=== PATIENT | male | born 1965 | race Caucasian/White ===

== ENCOUNTER 2019-06-25 00:30 | Inpatient (IN) | payer BC ==
[2019-06-25 00:51] LABS: Hemoglobin 6.2 g/dL (14.0-18.0); Mean Platelet Volume 7.6 fL (7.4-10.4); Platelet Count 179 thou/uL (130-400); Red Blood Cell (RBC) Count 1.67 mill/uL (4.70-6.10); White Blood Cell (WBC) Count 9.4 thou/uL (4.8-10.8)
[2019-06-25] MEDS ORDERED: Tranexamic Acid 1,000 MG/10 ML VIAL ONE (00:52)
[2019-06-25] MEDS ORDERED: Pantoprazole 40 MG VIAL ONE ×2 (00:52→09:40)
[2019-06-25 01:04] LABS: INR-International Normal Ratio 1.1; PTT 24.9 SEC (22.9-36.1); Prothrombin Time 14.1 SEC (12.0-14.7)
[2019-06-25 01:12] LABS: #Eosinphils 0.1 thou/uL (0.0-0.7); #Lymphocytes 2.4 thou/uL (1.20-3.40); #Monocytes 0.5 thou/uL (0.11-0.59); #Neutrophils 6.4 thou/uL (1.40-6.50); %Basophils 0.4 % (0.0-1.0); %Eosinophils 1.2 % (0.0-10.0); %Lymphocytes 25.1 % (21.0-51.0); %Monocytes 5.5 % (0.0-10.0); %Neutrophils 67.9 % (42.0-75.0); ALT (SGPT) 12 U/L (8-55); AST (SGOT) 14 U/L (5-34); Albumin 2.8 g/dL (3.5-5.0); Alkaline Phosphatase 38 U/L (40-110); Anion Gap 19 mmol/L (10-20); BUN (Urea Nitrogen) 41 mg/dL (8.4-25.7); Bilirubin, Total 0.3 mg/dL (0.2-1.2); Calc. Creatinine Clearance 0 mL/min (70-130); Calcium 7.8 mg/dL (7.8-10.44); Carbon Dioxide 19 mmol/L (22-29); Chloride 100 mmol/L (98-107); Estimated GFR-MDRD 45; Globulin 1.6 g/dL (2.4-3.5); Glucose 202 mg/dL (70-105); MDiff Complete? YES; Macrocytosis SLIGHT = 6-15 cells (100X) (0-5/hpf); Mean Corpuscular HGB CONC 34.7 g/dL (32.0-36.0); Mean Corpuscular Hemoglobin 37.3 pg (27.0-31.0); Protein, Total 4.4 g/dL (6.0-8.3); RBC Distribution Width 11.8 % (11.5-14.5); Sodium 134 mmol/L (136-145)
[2019-06-25] MEDS ORDERED: Tranexamic Acid 1,000 MG in Sodium Chloride 0.9% 250 ML 250 ML IVPB SCH (01:15)
[2019-06-25] MEDS ORDERED: CCU Electrolyte Replacement 1 EACH IVPB SCH (03:09)
[2019-06-25] MEDS ORDERED: Sodium Chloride 0.9% (PF) 10 ML VIAL FS PRN (03:11)
[2019-06-25] MEDS ORDERED: PHOS-NAK 1 PKT PACK PO PRN ×2 (03:12)
[2019-06-25] MEDS ORDERED: Potassium Chloride 40 MEQ in Sodium Chloride 0.9% 250 ML 250 ML IVPB PRN (03:12)
[2019-06-25] MEDS ORDERED: CCU ELECTROLYTE REPLACEMENT PROTOCOL FS PRN (03:12)
[2019-06-25] MEDS ORDERED: Magnesium Oxide 400 MG TAB PO PRN ×2 (03:12)
[2019-06-25] MEDS ORDERED: Magnesium 2 GM/50 ML 2 GM in Premix Bag 1 BAG IVPB PRN (03:12)
[2019-06-25] MEDS ORDERED: Potassium Phosphate 12 MMOL in Sodium Chloride 0.9% 250 ML 250 ML IV PRN (03:12)
[2019-06-25] MEDS ORDERED: Potassium Phosphate 9 MMOL in Sodium Chloride 0.9% 100 ML IVPB PRN (03:12)
[2019-06-25] MEDS ORDERED: Potassium Chloride 40 MEQ in Premix Bag 1 BAG IVPB PRN (03:12)
[2019-06-25] MEDS ORDERED: Potassium Chloride 20 MEQ TAB PO PRN (03:12)
[2019-06-25] MEDS ORDERED: Potassium Phosphate 15 MMOL in Sodium Chloride 0.9% 250 ML 250 ML IV PRN (03:12)
[2019-06-25] MEDS ORDERED: Sodium Chloride 0.9% 1,000 ML IV SCH (03:15)
[2019-06-25 04:35] LABS: Troponin I 0.012 ng/mL (< 0.028)
--- NOTE | 2019-06-25 04:49 | HP ---
CHIEF COMPLAINT: Dark blood per rectum. HISTORY OF PRESENT ILLNESS: Patient is a 53-year-old male with a past medical history of hypertension, who comes into the hospital with worsening dark stools going on since Sunday. The patient stated that Sunday night, he had a spicy crawfish and a femi crab and Sunday afternoon, he started feeling unwell. He started having nausea, vomiting, and dark stool, diarrhea. He stated that Sunday, he did not eat anything. He stated that he felt a little bit better, but still significantly had the diarrhea, nausea, and vomiting. Sunday, the patient was able to eat something and did not have the nausea, vomiting, but his diarrhea continued to the point that he got so dizzy and just really weak, so he called EMS last night. The patient denies taking any ibuprofen on a regular basis. He states that he takes it at times. He does drink significant amount of alcohol, 3 to 4 bourbons daily. This has never happened to this patient before. He denies any fevers or chills. In the EMS, he was noted to have a very low blood pressure, was given some IV hydration and was brought in here for further evaluation. PAST MEDICAL HISTORY: Hypertension, he has not been taking his losartan for the past couple days. FAMILY HISTORY: Mother had diabetes. Father had heart disease. PAST SURGICAL HISTORY: He has had a right ankle surgery. SOCIAL HISTORY: He smokes about half a pack a day. Alcohol, 3 to 4 bourbon daily. Denies any recreational drug use. He is a full code. REVIEW OF SYSTEMS: All negative except for the ones mentioned above in the HPI. PHYSICAL EXAMINATION: VITAL SIGNS: Temperature 98.8, respirations 18, blood pressure 115/70, heart rate 106, 100% on room air. GENERAL: He is awake, alert, and oriented x3. Does not appear in distress. CARDIOVASCULAR: S1, S2 present. Sinus tach. LUNGS: Clear to auscultation. No rhonchi or wheezes noted. ABDOMEN: Soft and nontender. No pain upon epigastric area or lower quadrant area. No pain upon palpation. Bowel sounds are present x2. EXTREMITIES: No edema. Pedal pulses are present x2. NEUROVASCULAR: No focal deficits noted. SKIN: No cuts, lesions, or bruises noted. LABORATORY RESULTS: Sodium 134, potassium of 4.0, BUN of 41, creatinine 1.60, glucose of 202. Troponin is 0.017. Alkaline phosphatase is normal. AST, ALT are normal. WBCs of 9.4, hemoglobin 6.2, hematocrit is 17.9, platelets of 179. He did have a chest x-ray which was normal and did not show any acute abnormalities. ASSESSMENT AND PLAN: The patient is a very pleasant 53-year-old male, who presents to the hospital with dark blood per rectum. 1. Hematochezia. The patient states that he initially started with nausea vomiting, gotten worse, started having some significant dark stools, possible upper gastrointestinal bleed due to alcohol use versus diverticulosis, bleed unclear at this time. He has never had EGD or colonoscopy. We will keep him n.p.o., put him on a PPI. He has no abdominal pain. I will hold off on any imaging for now. We will start him on some IV hydration. He is going to get 2 units of blood. We will check an H and H. He has not had anymore dark stools since he has been here. Infectious etiology is also a possibility, however, unlikely. 2. Dehydration. We will start patient on gentle hydration. Continue to monitor. 3. Acute kidney injury, this is most likely prerenal. We will continue to monitor. 4. Deep venous thrombosis prophylaxis. We will put the patient on SCDs. 5. History of hypertension. We will hold off on blood pressure medications for now. Job ID: [id number]
[2019-06-25] MEDS ORDERED: Albumin 25% 25 GM/100 ML BOT IVPB SCH (06:51)
--- NOTE | 2019-06-25 07:41 | RAD ---
Portable frontal chest radiograph: 06/25/2019 COMPARISON: None HISTORY: Hypotension, GI bleeding FINDINGS: Lungs are clear. Heart and mediastinal contours appear within normal limits. IMPRESSION: No acute findings.
[2019-06-25] MEDS: Sodium Chloride 0.9% 1,000 ML IV SCH ×2 (08:10→20:31)
[2019-06-25 09:49] LABS: #Eosinphils 0.1 thou/uL (0.0-0.7); #Lymphocytes 1.6 thou/uL (1.20-3.40); #Monocytes 0.7 thou/uL (0.11-0.59); #Neutrophils 6.7 thou/uL (1.40-6.50); %Basophils 0.3 % (0.0-1.0); %Eosinophils 0.9 % (0.0-10.0); %Lymphocytes 17.9 % (21.0-51.0); %Monocytes 7.4 % (0.0-10.0); %Neutrophils 73.5 % (42.0-75.0); Hemoglobin 7.1 g/dL (14.0-18.0); Mean Corpuscular HGB CONC 35.3 g/dL (32.0-36.0); Mean Corpuscular Hemoglobin 35.4 pg (27.0-31.0); Mean Platelet Volume 8.2 fL (7.4-10.4); Platelet Count 145 thou/uL (130-400); Red Blood Cell (RBC) Count 2.01 mill/uL (4.70-6.10); White Blood Cell (WBC) Count 9.2 thou/uL (4.8-10.8)
[2019-06-25] MEDS: Pantoprazole 40 MG VIAL IVP SCH ×2 (09:54→20:31)
[2019-06-25] MEDS ORDERED: PROPOFOL 200 MG/20 ML VIAL ONE (09:56)
[2019-06-25 10:08] VITALS: BMI 22.8
[2019-06-25 10:17] LABS: Troponin I 0.018 ng/mL (< 0.028)
--- NOTE | 2019-06-25 16:13 | OP ---
DATE OF PROCEDURE: 06/25/2019 OPERATIVE PROCEDURE: Esophagogastroduodenoscopy with biopsy. PREOPERATIVE DIAGNOSIS: Gastrointestinal bleeding. POSTOPERATIVE DIAGNOSES: 1. Multiple erosions, distal esophagus. 2. Hiatus hernia. 3. Large deep ulceration, measuring approximately 3 x 2 cm, gastric antrum, nonbleeding. 4. Duodenitis with polypoid-appearing mucosa. In the descending duodenum, no lesions. 5. At the time of endoscopy, there was no active bleeding seen and there were no visible vessels seen. DESCRIPTION OF PROCEDURE: The patient was placed on his left lateral position and was given sedation by Anesthesia Department. A Pentax videogastroscope under direct vision passed down the oropharynx past the GE junction into the stomach and subsequently into the descending duodenum. The patient had multiple erosions in the distal esophagus. The intervening mucosa appeared actually normal. In the GE junction, no Marilee-Gibbs tear seen. Retroflexion failed to show any pathology in the fundus or cardia. He does have a hiatus hernia. The stomach was completely free of any blood or any old blood. Over the gastric antrum, the patient was found to have a very large and deep ulceration. The ulcer was quite deep and measured probably about 3 x 2 cm. The ulcer base appeared very smooth and does not show any visible vessel or any oozing of blood. The duodenal bulb showed duodenitis with mucosal edema and erythema. In the descending duodenum, no pathology. Biopsy obtained from the gastric antrum and gastric body. The stomach decompressed and scope was removed. RECOMMENDATION: 1. Discontinue n.p.o. 2. Clear liquid diet today. 3. IV PPI. 4. Serial hemoglobin and hematocrit and transfuse p.r.n. Job ID: [id number]
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
--- NOTE | 2019-06-25 17:54 | PDOC.HOSPP ---
- Subjective Encounter Date: 06/25/19 Encounter Time: 12:10 Subjective: seenin the ER holding, plan for EGD today.no hx of NSAIDs, hemorrhoids and no prior cscope. no bleed this am. - Objective Vital Signs & Weight: Vital Signs (12 hours) Temp Pulse Ox 06/25/19 16:58 98 06/25/19 16:44 99 06/25/19 16:05 98.2 F Weight Weight 159 lb 6.307 oz Result Diagrams: 06/25/19 09:36 06/25/19 00:37 Hospitalist ROS - Medication Medications: Active Medications Generic Name Dose Route Start Last Admin Trade Name Freq PRN Reason Stop Dose Admin Thiamine HCl 100 mg/ Sodium 51 mls @ 100 mls/hr 06/25/19 09:00 06/25/19 09:54 Chloride IVPB 51 mls Q24HR REA Administration Sodium Chloride 1,000 mls @ 150 mls/hr 06/25/19 06:51 06/25/19 08:10 Normal Saline 0.9% IV 1,000 mls .Q6H40M REA Administration Pantoprazole Sodium 40 mg 06/25/19 09:00 06/25/19 09:54 Protonix IVP 40 mg Q12HR REA Administration Sodium Chloride 10 ml 06/25/19 09:00 06/25/19 09:54 Flush - Normal Saline IVF 10 ml Q12HR REA Administration - Exam General Appearance: NAD, awake alert Eye: PERRL ENT: normocephalic atraumatic Neck: supple Heart: RRR, no murmur Respiratory: CTAB, normal chest expansion Gastrointestinal: soft, normal bowel sounds Hosp A/P - Plan Hematochezia ABLA anemia requiring transfusioin s/p EGD -severe esophagitis and gastritis -cw IV PPI - CLD adn advance as vicente'd JO -with dehydration -pt getting prbcs -am bmp HTN -cw home regimen.
[2019-06-25 18:23] LABS: Hemoglobin 8.1 g/dL (14.0-18.0)
[2019-06-26 03:08] VITALS: BP 113/76
[2019-06-26 03:49] LABS: #Eosinphils 0.1 thou/uL (0.0-0.7); #Lymphocytes 2.1 thou/uL (1.20-3.40); #Monocytes 0.5 thou/uL (0.11-0.59); #Neutrophils 4.4 thou/uL (1.40-6.50); %Basophils 0.6 % (0.0-1.0); %Eosinophils 1.6 % (0.0-10.0); %Lymphocytes 29.4 % (21.0-51.0); %Monocytes 7.3 % (0.0-10.0); %Neutrophils 61.1 % (42.0-75.0); Hemoglobin 7.5 g/dL (14.0-18.0); Mean Corpuscular HGB CONC 35.9 g/dL (32.0-36.0); Mean Corpuscular Hemoglobin 35.2 pg (27.0-31.0); Mean Corpuscular Volume 98.1 fL (78.0-98.0); Mean Platelet Volume 7.6 fL (7.4-10.4); Platelet Count 138 thou/uL (130-400); RBC Distribution Width 14.8 % (11.5-14.5); Red Blood Cell (RBC) Count 2.11 mill/uL (4.70-6.10); White Blood Cell (WBC) Count 7.2 thou/uL (4.8-10.8)
[2019-06-26 04:11] LABS: Anion Gap 9 mmol/L (10-20); BUN (Urea Nitrogen) 18 mg/dL (8.4-25.7); Calc. Creatinine Clearance 92 mL/min (70-130); Calcium 7.7 mg/dL (7.8-10.44); Carbon Dioxide 20 mmol/L (22-29); Chloride 112 mmol/L (98-107); Estimated GFR-MDRD 84; Glucose 90 mg/dL (70-105); Potassium 4.1 mmol/L (3.5-5.1); Sodium 137 mmol/L (136-145)
[2019-06-26] MEDS: Sodium Chloride 0.9% 1,000 ML IV SCH ×4 (04:11→17:12)
[2019-06-26] MEDS: Pantoprazole 40 MG VIAL IVP SCH (09:54)
[2019-06-26 16:39] VITALS: TEMP 98.5
--- NOTE | 2019-06-26 16:48 | PDOC.HOSPP ---
- Subjective Encounter Date: 06/26/19 Encounter Time: 09:30 Subjective: able to tolerate CLD, had BM- at bedside. - Objective Vital Signs & Weight: Vital Signs (12 hours) Temp Pulse Ox 06/26/19 16:39 98.5 F 06/26/19 11:29 98.1 F 06/26/19 07:40 98.2 F 06/26/19 07:25 98 Weight Weight 171 lb 1.012 oz Most Recent Monitor Data Heart Rate from ECG 93 NIBP 149/71 NIBP BP-Mean 97 Respiration from ECG 21 SpO2 97 I&O: 06/25/19 06/26/19 06/27/19 06:59 06:59 06:59 Intake Total 2239 Output Total 850 Balance 1389 Result Diagrams: 06/26/19 03:23 06/26/19 03:23 Hospitalist ROS - Medication Medications: Active Medications Generic Name Dose Route Start Last Admin Trade Name Freq PRN Reason Stop Dose Admin Thiamine HCl 100 mg/ Sodium 51 mls @ 100 mls/hr 06/25/19 09:00 06/26/19 09:54 Chloride IVPB 51 mls Q24HR ERA Administration Sodium Chloride 1,000 mls @ 150 mls/hr 06/25/19 06:51 06/26/19 09:54 Normal Saline 0.9% IV 1,000 mls .Q6H40M REA Administration Pantoprazole Sodium 40 mg 06/25/19 09:00 06/26/19 09:54 Protonix IVP 40 mg Q12HR REA Administration Sodium Chloride 10 ml 06/25/19 09:00 06/26/19 09:54 Flush - Normal Saline IVF 10 ml Q12HR REA Administration - Exam General Appearance: NAD Eye: PERRL ENT: dry oral mucosa Neck: supple Heart: RRR Respiratory: CTAB Gastrointestinal: soft, normal bowel sounds Hosp A/P - Plan Hematochezia ABLA anemia requiring transfusioin s/p EGD -severe esophagitis and gastritis -cw IV PPI - CLD adn advance as vicente'd JO -with dehydration -pt getting prbcs -am bmp HTN -cw home regimen. change IV to PO bid waiting for GI to clear him. stable for dc.
--- NOTE | 2019-06-26 17:48 | PRG ---
DATE OF SERVICE: 06/26/2019 SUBJECTIVE: This is a 53-year-old male with history of chronic alcohol abuse over the years, comes in with abdominal pain, nausea, vomiting, history of black tarry stool. He has never had an EGD yesterday. deep ulceration of the gastric antrum. Biopsy of the gastric antrum shows no Helicobacter. He has done well overnight. He is tolerating diet. No abdominal pain. No nausea, no vomiting. Blood count is stable around 7.5. He offers no complaints. OBJECTIVE: GENERAL: Appears comfortable. VITAL SIGNS: Afebrile. His pulse is 88, blood pressure is 149/71. CARDIOVASCULAR: Normal heart sounds. LUNGS: Clear to auscultation. ABDOMEN: Soft. No organomegaly. No tenderness. No masses. IMPRESSION: 1. Upper GI bleeding. 2. Gastric ulcer. RECOMMENDATIONS: 1. From GI standpoint, he can be discharged home on pantoprazole 40 once a day. 2. Iron supplement. 3. Will come back to see me in 2 weeks. Plan to repeat EGD in 3 months' time. Job ID: [id number]
--- NOTE | 2019-06-27 03:55 | DIS ---
DATE OF ADMISSION: 06/25/2019 DATE OF DISCHARGE: 06/26/2019 DISCHARGE DIAGNOSES: 1. Hematochezia. 2. Acute blood loss anemia, requiring transfusion. 3. Severe esophagitis and gastritis. 4. Acute kidney injury with dehydration. 5. Hypertension. 6. Status post GI consult with Dr. Crisostomo. 7. Status post EGD. HOSPITAL COURSE: Please see the history and physical and progress note for details. He was admitted with hematochezia blood transfusion and his hemoglobin was 7.5 today. GI cleared him for discharge. The patient is discharged with iron supplement, as well as Protonix twice a day. DISCHARGE INSTRUCTIONS: Activity as tolerated. Regular diet. Follow up with PCP in one week. Follow up with Gastroenterology, Dr. Crisostomo, as needed. Discharge time took less than 30 minutes. Job ID: [id number]
--- NOTE | 2019-06-28 14:15 | EKG ---
Test Reason : Blood Pressure : / mmHG Vent. Rate : 106 BPM Atrial Rate : 106 BPM P-R Int : 154 ms QRS Dur : 086 ms QT Int : 380 ms P-R-T Axes : 073 068 070 degrees QTc Int : 504 ms Sinus tachycardia Otherwise normal ECG Confirmed by DINORA AIKEN DO ([id number]), editor department ANN MARIE ENAMORADO ([id number]) on 06/28/2019 2:14:54 PM Referred By: Confirmed By:DINORA AIKEN DO
== END 2019-06-26 18:40 | disposition home or self-care (01) | DRG 378 ==
LOC: ERS 00:30 → ERHOLD 03:15 → IMCU/EMU 15:43
PROVIDERS: ADMIT Internal Medicine; ATTEND Internal Medicine
PROC: 0DB68ZX Excision of Stomach, Via Natural or Artificial Opening Endoscopic, Diagnostic (ICD-10-PCS; principal; 2019-06-25)
PROC: 30233N1 Transfusion of Nonautologous Red Blood Cells into Peripheral Vein, Percutaneous Approach (ICD-10-PCS; 2019-06-25)
DX: K25.4 Chronic or unspecified gastric ulcer with hemorrhage (principal); N17.9 Acute kidney failure, unspecified; D62 Acute posthemorrhagic anemia; I10 Essential (primary) hypertension; F17.210 Nicotine dependence, cigarettes, uncomplicated; F10.10 Alcohol abuse, uncomplicated; E86.0 Dehydration; K44.9 Diaphragmatic hernia without obstruction or gangrene; K29.80 Duodenitis without bleeding; K20.9 Esophagitis, unspecified; K29.70 Gastritis, unspecified, without bleeding
CPT/HCPCS: 36415; 36430; 71045; 80048; 80053; 84484; 85025; 85610; 85730; 86850; 86900; 86901; 88305; 88312; 93005; 96365; 96366; 96368; 96376; 99292; C9113; J2704; J3411; J7050; P9016; P9047

== ENCOUNTER 2020-08-31 19:48 | Observation (INO) | payer BC ==
[2020-08-31 20:19] LABS: #Basophils 0.1 thou/uL (0.0-0.2); #Eosinphils 0.1 thou/uL (0.0-0.7); #Lymphocytes 2.1 thou/uL (1.20-3.40); #Monocytes 0.8 thou/uL (0.11-0.59); #Neutrophils 9.3 thou/uL (1.40-6.50); %Basophils 0.5 % (0.0-1.0); %Eosinophils 0.6 % (0.0-10.0); %Lymphocytes 16.9 % (21.0-51.0); %Monocytes 6.7 % (0.0-10.0); %Neutrophils 75.3 % (42.0-75.0); Hemoglobin 13.3 g/dL (14.0-18.0); Mean Corpuscular HGB CONC 34.8 g/dL (32.0-36.0); Mean Corpuscular Hemoglobin 33.3 pg (27.0-31.0); Mean Corpuscular Volume 95.6 fL (78.0-98.0); Mean Platelet Volume 7.7 fL (7.4-10.4); Platelet Count 225 thou/uL (130-400); RBC Distribution Width 12.3 % (11.5-14.5); Red Blood Cell (RBC) Count 3.99 mill/uL (4.70-6.10); White Blood Cell (WBC) Count 12.3 thou/uL (4.8-10.8)
[2020-08-31] MEDS ORDERED: Nitroglycerin 2% Ointment 1 INCH/1 GM Packet ONE (20:24)
[2020-08-31] MEDS ORDERED: Aspirin Chewable 81 MG TAB ONE (20:24)
[2020-08-31 20:42] LABS: ALT (SGPT) 29 U/L (8-55); AST (SGOT) 40 U/L (5-34); Albumin 4.3 g/dL (3.5-5.0); Alkaline Phosphatase 71 U/L (40-110); Anion Gap 19 mmol/L (10-20); BUN (Urea Nitrogen) 22 mg/dL (8.4-25.7); Bilirubin, Total 0.7 mg/dL (0.2-1.2); Calc. Creatinine Clearance 0 mL/min (70-130); Calcium 6.7 mg/dL (7.8-10.44); Carbon Dioxide 23 mmol/L (22-29); Chloride 102 mmol/L (98-107); Globulin 3.2 g/dL (2.4-3.5); Glucose 114 mg/dL (70-105); Lipase 47 U/L (8-78); Potassium 3.2 mmol/L (3.5-5.1); Protein, Total 7.5 g/dL (6.0-8.3); Sodium 141 mmol/L (136-145)
[2020-08-31] MEDS ORDERED: Potassium Chloride 20 MEQ TAB ONE (21:03)
[2020-08-31] MEDS ORDERED: Ondansetron PF 4 MG/2 ML Vial IVP PRN (23:51)
[2020-08-31] MEDS ORDERED: Acetaminophen 325 MG TAB PO PRN (23:51)
[2020-08-31] MEDS ORDERED: hydrALAZINE 20 MG/ML VIAL SLOW IVP PRN (23:53)
[2020-08-31 23:54] LABS: Troponin I Less than 0.010 ng/mL (< 0.028)
[2020-08-31] MEDS ORDERED: Pantoprazole 40 MG VIAL IVP SCH (23:59)
[2020-09-01] MEDS: Sodium Chloride 0.9% 1,000 ML IV SCH ×3 (00:33→21:07)
[2020-09-01] MEDS ORDERED: Magnesium Sulfate 4 GM in Sodium Chloride 0.9% 250 ML 250 ML IVPB SCH (01:00)
[2020-09-01] MEDS ORDERED: Morphine 4 MG/ML VIAL SLOW IVP PRN (01:23)
[2020-09-01 01:25] VITALS: BMI 25.3
[2020-09-01 02:23] LABS: SARS-CoV-2 NAA Rapid Test Not Detected (NotDetected)
[2020-09-01 02:33] LABS: #Eosinphils 0.1 thou/uL (0.0-0.7); #Lymphocytes 1.6 thou/uL (1.20-3.40); #Monocytes 0.7 thou/uL (0.11-0.59); #Neutrophils 6.5 thou/uL (1.40-6.50); %Basophils 0.3 % (0.0-1.0); %Eosinophils 1.1 % (0.0-10.0); %Lymphocytes 18.2 % (21.0-51.0); %Monocytes 7.4 % (0.0-10.0); %Neutrophils 73.1 % (42.0-75.0); Hemoglobin 11.5 g/dL (14.0-18.0); Mean Corpuscular HGB CONC 34.2 g/dL (32.0-36.0); Mean Corpuscular Hemoglobin 33.1 pg (27.0-31.0); Mean Corpuscular Volume 96.6 fL (78.0-98.0); Mean Platelet Volume 7.8 fL (7.4-10.4); Platelet Count 198 thou/uL (130-400); RBC Distribution Width 12.3 % (11.5-14.5); Red Blood Cell (RBC) Count 3.48 mill/uL (4.70-6.10); White Blood Cell (WBC) Count 8.8 thou/uL (4.8-10.8)
[2020-09-01 02:58] LABS: Troponin I Less than 0.010 ng/mL (< 0.028)
[2020-09-01 03:25] LABS: Anion Gap 16 mmol/L (10-20); BUN (Urea Nitrogen) 24 mg/dL (8.4-25.7); Calc. Creatinine Clearance 60 mL/min (70-130); Calcium 6.4 mg/dL (7.8-10.44); Carbon Dioxide 22 mmol/L (22-29); Chloride 107 mmol/L (98-107); Glucose 100 mg/dL (70-105); Magnesium 1.6 mg/dL (1.6-2.6); Potassium 3.1 mmol/L (3.5-5.1); Sodium 142 mmol/L (136-145)
[2020-09-01] MEDS: Nitroglycerin 2% Ointment 1 INCH/1 GM Packet TOP SCH ×3 (05:19→21:11)
[2020-09-01] MEDS ORDERED: Potassium Chloride 20 MEQ TAB PO SCH (09:15)
[2020-09-01] MEDS ORDERED: ADENOSINE 60 MG/20 ML VIAL ONE (09:54)
[2020-09-01] MEDS ORDERED: Magnesium 2 GM/50 ML 2 GM in Premix Bag 1 BAG IVPB SCH (10:30)
[2020-09-01] MEDS ORDERED: Pantoprazole 40 MG VIAL IVP SCH (21:00)
[2020-09-02] MEDS ORDERED: Lidocaine 5% Patch TD SCH ×2 (01:30→21:00)
[2020-09-02] MEDS: Nitroglycerin 2% Ointment 1 INCH/1 GM Packet TOP SCH (05:24)
[2020-09-02 06:13] LABS: #Basophils 0.1 thou/uL (0.0-0.2); #Eosinphils 0.1 thou/uL (0.0-0.7); #Lymphocytes 1.4 thou/uL (1.20-3.40); #Monocytes 0.5 thou/uL (0.11-0.59); #Neutrophils 4.6 thou/uL (1.40-6.50); %Basophils 0.8 % (0.0-1.0); %Eosinophils 1.7 % (0.0-10.0); %Lymphocytes 20.7 % (21.0-51.0); %Monocytes 6.9 % (0.0-10.0); Hemoglobin 10.6 g/dL (14.0-18.0); Mean Corpuscular HGB CONC 34.4 g/dL (32.0-36.0); Mean Corpuscular Hemoglobin 33.5 pg (27.0-31.0); Mean Corpuscular Volume 97.6 fL (78.0-98.0); Mean Platelet Volume 7.6 fL (7.4-10.4); Platelet Count 172 thou/uL (130-400); RBC Distribution Width 12.3 % (11.5-14.5); Red Blood Cell (RBC) Count 3.17 mill/uL (4.70-6.10); White Blood Cell (WBC) Count 6.6 thou/uL (4.8-10.8)
[2020-09-02 06:37] LABS: Anion Gap 13 mmol/L (10-20); BUN (Urea Nitrogen) 11 mg/dL (8.4-25.7); Calc. Creatinine Clearance 88 mL/min (70-130); Calcium 6.2 mg/dL (7.8-10.44); Carbon Dioxide 24 mmol/L (22-29); Chloride 108 mmol/L (98-107); Glucose 106 mg/dL (70-105); Magnesium 1.3 mg/dL (1.6-2.6); Potassium 3.5 mmol/L (3.5-5.1); Sodium 141 mmol/L (136-145)
[2020-09-02] MEDS ORDERED: Magnesium 2 GM/50 ML 2 GM in Premix Bag 1 BAG IVPB SCH (08:00)
[2020-09-02 08:10] VITALS: BP 169/93; TEMP 97.4
[2020-09-02] MEDS ORDERED: Transdermal Patch Removal TOP SCH (14:00)
[2020-09-03] MEDS ORDERED: Transdermal Patch Removal TOP SCH (09:00)
== END 2020-09-02 11:21 | disposition home or self-care (01) ==
LOC: ERS 19:48 → 2SW 22:14
PROVIDERS: ADMIT Internal Medicine; ATTEND Hospitalist
DX: R07.89 Other chest pain (principal); I10 Essential (primary) hypertension; E78.5 Hyperlipidemia, unspecified; F10.10 Alcohol abuse, uncomplicated; N17.9 Acute kidney failure, unspecified; E83.42 Hypomagnesemia; E87.6 Hypokalemia; Z87.891 Personal history of nicotine dependence; Z79.899 Other long term (current) drug therapy; Z20.822 Contact with and (suspected) exposure to COVID-19
CPT/HCPCS: 36415; 71045; 78452; 80048; 80053; 83690; 83735; 84484; 85025; 85379; 93005; 93017; 94760; 96365; 96366; 96375; A9500; G0378; J0153; J2270; J3475; J7050; U0002; U0005